=== PATIENT | female | born 1960 | race Hispanic/Latino ===

== ENCOUNTER 2021-09-09 15:28 | Inpatient (IN) | payer OTHER ==
[~2021-09-09] VITALS: Ht 162.6 cm; Wt 80.4 kg
[2021-09-09 16:14] LABS: EOSINOPHILS # (AUTO) 0.1 (0.0-0.4); EOSINOPHILS % 3.5 % (0.0-6.0); HEMOGLOBIN 11.3 g/dL (12.0-16.0); LYMPHOCYTES # (AUTO) 0.5 (1.0-3.2); LYMPHOCYTES % 27.1 % (18.0-39.1); MEAN CORPUSCULAR HEMOGLOBIN 31.7 pg (28-32); MEAN CORPUSCULAR HGB CONC 32.3 g/dL (31-35); MONOCYTES # (AUTO) 0.2 (0.2-0.8); MONOCYTES % 9.5 % (4.4-11.3); NEUTROPHILS # (AUTO) 1.2 (2.1-6.9); NEUTROPHILS % 59.4 % (38.7-80.0); RED BLOOD COUNT 3.57 x10e6/uL (3.6-5.1); RED CELL DISTRIBUTION WIDTH 15.8 % (11.7-14.4)
[2021-09-09 16:15] LABS: PLATELET COUNT 39 x10e3/uL (140-360)
[2021-09-09 16:26] LABS: INR 1.35; PROTHROMBIN TIME 17.6 seconds (11.9-14.5)
[2021-09-09 16:28] LABS: PARTIAL THROMBOPLASTIN TIME 33.7 seconds (23.8-35.5)
[2021-09-09 16:34] LABS: ALBUMIN 2.9 g/dL (3.5-5.0); ALBUMIN/GLOBULIN RATIO 0.7 (0.8-2.0); ANION GAP 12.3 mmol/L (8-16); CALCIUM 8.6 mg/dL (8.4-10.2); CREATININE, SERUM 0.68 mg/dL (0.57-1.11); POTASSIUM 4.3 mmol/L (3.5-5.1)
[2021-09-09 16:38] LABS: CLARITY,URINE CLEAR (CLEAR); COLOR,URINE YELLOW (YELLOW); KETONES,URINE NEGATIVE (NEGATIVE); LEUKOCYTE ESTERASE ,URINE NEGATIVE (NEGATIVE); NITRITE,URINE NEGATIVE (NEGATIVE); PROTEIN,URINE DIPSTICK NEGATIVE (NEGATIVE); URINE UROBILINOGEN 0.2 mg/dL (0.2 - 1)
[2021-09-09 16:47] LABS: BACTERIA,URINE MODERATE /HPF; EPITHELIAL CELLS,URINE MODERATE /LPF; RBC,URINE 0-5 /HPF (0-5)
[2021-09-09] MEDS: METHYLPREDNISOLONE SOD SUCC 125 MG/2ML VIAL IV SCH ×3 (17:08→21:45)
[2021-09-09] MEDS: Pantoprazole IV 40 MG in SODIUM CHLORIDE 0.9% 50ML 50 ML IV SCH ×3 (17:09→21:45)
[2021-09-09 20:00] VITALS: BP 115/54
[2021-09-09] MEDS ORDERED: DIPHENHYDRAMINE HCL INJ 50 MG/ML VIAL IV ONE ×2 (21:00→21:45)
[2021-09-09] MEDS ORDERED: SODIUM CHLORIDE 0.9% 100 ML ONE (21:50)
[2021-09-09] MEDS ORDERED: IOPAMIDOL 370 MG/ML 200 ML INFUS..BTL INJ ONE (21:51)
[2021-09-10] VITALS (7 sets, daily range): BP systolic 99–108; BP diastolic 59–71
[2021-09-10] MEDS: METHYLPREDNISOLONE SOD SUCC 125 MG/2ML VIAL IV SCH ×5 (02:45→22:54)
[2021-09-10] MEDS: Pantoprazole IV 40 MG in SODIUM CHLORIDE 0.9% 50ML 50 ML IV SCH ×5 (02:45→22:54)
[2021-09-10] MEDS ORDERED: SODIUM CHLORIDE 0.9% 50ML 50 ML ONE (05:07)
[2021-09-10] MEDS ORDERED: GLIPIZIDE5 MG PO (11:59)
[2021-09-10] MEDS ORDERED: FUROSEMIDE40 MG PO (11:59)
[2021-09-10] MEDS ORDERED: ALDACTONE100 MG PO (11:59)
[2021-09-10] MEDS ORDERED: LEVOTHYROXINE50 MCG PO (11:59)
[2021-09-10] MEDS ORDERED: FERROUS SULFAT325 MG PO (11:59)
[2021-09-10] MEDS ORDERED: METFORMIN HCL500 MG PO (11:59)
[2021-09-10] MEDS ORDERED: VITAMIN B-121000 MCG PO (11:59)
[2021-09-10] MEDS ORDERED: HYDROCORTISON28.4 G2 TOP (11:59)
[2021-09-10] MEDS ORDERED: LACTULOSE20 GM/30 M PO (11:59)
[2021-09-10] MEDS ORDERED: TRAMADOL HCL100 M2 PO (12:01)
[2021-09-10] MEDS ORDERED: DEXTROSE 50% SYRINGE 50 ML IV PRN (13:30)
[2021-09-10] MEDS ORDERED: TRAMADOL HCL 50 MG TAB PO PRN (16:00)
[2021-09-10] MEDS: INSULIN LISPRO 100 UNIT/1 ML 3ML VIAL SQ SCH ×2 (16:44→20:38)
[2021-09-10] MEDS: ACETAMINOPHEN 325 MG TAB PO PRN (23:17)
[2021-09-10] MEDS ORDERED: CEFTRIAXONE 1 GM in SODIUM CHLORIDE 0.9% 50ML 50 ML IV STA (23:20)
[2021-09-10] MEDS ORDERED: PHYTONADIONE 10 MG/ML AMP IV ONE (23:30)
[2021-09-10] MEDS ORDERED: PHYTONADIONE 10MG/ML 20 MG in SODIUM CHLORIDE 0.9% 50ML 50 ML IV ONE (23:45)
[2021-09-10] MEDS ORDERED: BISACODYL 5 MG TAB EC PO ONE (23:45)
[2021-09-11] VITALS (7 sets, daily range): BP systolic 105–120; BP diastolic 65–79
[2021-09-11] MEDS ORDERED: SODIUM CHLORIDE 0.9% 250ML 250 ML ONE (00:03)
[2021-09-11] MEDS ORDERED: BISACODYL 5 MG TAB EC PO ONE ×2 (00:15→04:00)
[2021-09-11] MEDS ORDERED: ONDANSETRON HCL INJ 2MG/ML 2ML 2 MG/ML VIAL IV PRN (03:30)
[2021-09-11] MEDS ORDERED: Morphine 4mg Syringe 4 MG/ML INJ IV ONE (04:00)
[2021-09-11] MEDS ORDERED: CITRATE OF MAGNESIA 300ML BOTTLE PO ONE ×3 (05:00→12:15)
[2021-09-11 05:09] LABS: HEMATOCRIT 32.3 % (34.2-44.1); HEMOGLOBIN 10.4 g/dL (12.0-16.0); LYMPHOCYTES # (AUTO) 0.2 (1.0-3.2); LYMPHOCYTES % 6.4 % (18.0-39.1); MEAN CORPUSCULAR HGB CONC 32.2 g/dL (31-35); MEAN CORPUSCULAR VOLUME 96.4 fL (81-99); MONOCYTES # (AUTO) 0.1 (0.2-0.8); NEUTROPHILS # (AUTO) 3.3 (2.1-6.9); NEUTROPHILS % 91.3 % (38.7-80.0); RED BLOOD COUNT 3.35 x10e6/uL (3.6-5.1); RED CELL DISTRIBUTION WIDTH 15.2 % (11.7-14.4)
[2021-09-11 05:18] LABS: INR 1.55; PROTHROMBIN TIME 19.9 seconds (11.9-14.5)
[2021-09-11 05:24] LABS: ALBUMIN 2.6 g/dL (3.5-5.0); ALBUMIN/GLOBULIN RATIO 0.7 (0.8-2.0); CREATININE, SERUM 0.7 mg/dL (0.57-1.11)
[2021-09-11 05:45] LABS: PLATELET COUNT 30 x10e3/uL (140-360)
[2021-09-11 06:18] LABS: FERRITIN 22.91 ng/mL (4.63-204.00)
[2021-09-11] MEDS: LEVOTHYROXINE SODIUM 50 MCG TAB PO SCH (06:38)
[2021-09-11] MEDS: Pantoprazole IV 40 MG in SODIUM CHLORIDE 0.9% 50ML 50 ML IV SCH ×4 (06:38→18:45)
[2021-09-11] MEDS: INSULIN LISPRO 100 UNIT/1 ML 3ML VIAL SQ SCH ×4 (07:30→21:00)
[2021-09-11] MEDS: CYANOCOBALAMIN 1,000 MCG TAB PO SCH (08:45)
[2021-09-11] MEDS ORDERED: FERROUS SULFATE 325 MG TAB PO SCH (09:00)
[2021-09-11] MEDS: CEFTRIAXONE 1 GM in SODIUM CHLORIDE 0.9% 50ML 50 ML IV SCH (09:00)
[2021-09-11] MEDS ORDERED: SODIUM CHLORIDE 0.9% 250ML 500 ML ONE (09:19)
[2021-09-11] MEDS ORDERED: IRON SUCROSE 100 MG in SODIUM CHLORIDE 0.9% 100 ML 100 ML IV SCH (10:00)
[2021-09-11] MEDS ORDERED: LACTULOSE SYRUP 20 GM/30 ML UDC PO ONE ×2 (13:30→20:00)
[2021-09-11] MEDS ORDERED: PROMETHAZINE 12.5MG/ NACL 0.9% 12.5 MG/50 ML BAG IV ONE (13:30)
[2021-09-11] MEDS ORDERED: BISACODYL 10 MG SUPP PR ONE (16:30)
[2021-09-11] MEDS: IRON SUCROSE 100 MG in SODIUM CHLORIDE 0.9% 100 ML 100 ML IV SCH (22:31)
[2021-09-12] MEDS: Pantoprazole IV 40 MG in SODIUM CHLORIDE 0.9% 50ML 50 ML IV SCH ×5 (00:09→20:41)
[2021-09-12 00:15] VITALS: BP 106/60
[2021-09-12] MEDS ORDERED: LACTULOSE SYRUP 20 GM/30 ML UDC PO ONE (01:00)
[2021-09-12] MEDS: LEVOTHYROXINE SODIUM 50 MCG TAB PO SCH (05:36)
[2021-09-12 05:42] LABS: HEMATOCRIT 36.8 % (34.2-44.1); HEMOGLOBIN 11.7 g/dL (12.0-16.0); LYMPHOCYTES # (AUTO) 0.3 (1.0-3.2); LYMPHOCYTES % 8.9 % (18.0-39.1); MEAN CORPUSCULAR HEMOGLOBIN 31.5 pg (28-32); MEAN CORPUSCULAR HGB CONC 31.8 g/dL (31-35); MEAN CORPUSCULAR VOLUME 99.2 fL (81-99); MONOCYTES # (AUTO) 0.2 (0.2-0.8); MONOCYTES % 7.1 % (4.4-11.3); NEUTROPHILS # (AUTO) 2.8 (2.1-6.9); NEUTROPHILS % 83.7 % (38.7-80.0); RED BLOOD COUNT 3.71 x10e6/uL (3.6-5.1); RED CELL DISTRIBUTION WIDTH 15.9 % (11.7-14.4)
[2021-09-12 06:07] LABS: ALBUMIN 3.1 g/dL (3.5-5.0); ALBUMIN/GLOBULIN RATIO 0.7 (0.8-2.0); ANION GAP 13.8 mmol/L (8-16); CREATININE, SERUM 1.02 mg/dL (0.57-1.11); POTASSIUM 3.8 mmol/L (3.5-5.1)
[2021-09-12 06:10] LABS: INR 1.35; PROTHROMBIN TIME 17.8 seconds (11.9-14.5)
[2021-09-12 06:13] VITALS: BP 98/62
[2021-09-12 06:22] LABS: PLATELET COUNT 41 x10e3/uL (140-360)
[2021-09-12] MEDS: INSULIN LISPRO 100 UNIT/1 ML 3ML VIAL SQ SCH ×4 (07:30→20:45)
[2021-09-12] MEDS ORDERED: BISACODYL 5 MG TAB EC PO ONE ×2 (07:45→08:15)
[2021-09-12 07:47] VITALS: BP 106/68
[2021-09-12] MEDS ORDERED: SODIUM CHLORIDE 0.9% 250ML 500 ML ONE (08:05)
[2021-09-12] MEDS ORDERED: CYANOCOBALAMIN INJ 1,000 MCG/ML VIAL IM SCH (09:00)
[2021-09-12] MEDS: CYANOCOBALAMIN 1,000 MCG TAB PO SCH (09:00)
[2021-09-12] MEDS ORDERED: IRON SUCROSE 100 MG in SODIUM CHLORIDE 0.9% 100 ML 100 ML IV SCH (09:00)
[2021-09-12] MEDS: CEFTRIAXONE 1 GM in SODIUM CHLORIDE 0.9% 50ML 50 ML IV SCH (10:00)
[2021-09-12 11:41] VITALS: BP 105/73
[2021-09-12] MEDS ORDERED: FENTANYL CITRATE/PF 100MCG/2 ML INJ ONE (15:08)
[2021-09-12] MEDS ORDERED: HYOSCYAMINE SULFATE 0.5 MG/ML INJ ONE (15:44)
[2021-09-12] MEDS ORDERED: GLUCAGON FOR INJ 1 MG VIAL ONE (15:44)
[2021-09-12] MEDS ORDERED: LIDOCAINE HCL 2% LOCAL INJ 5 ML SDV VIAL INJ ONE (15:44)
[2021-09-12] MEDS ORDERED: PROPOFOL IV EMULSION 10 MG/ML 20 ML VIAL ONE (15:44)
[2021-09-12 15:54] VITALS: BP 114/64
[2021-09-12] MEDS ORDERED: PROPRANOLOL HCL 10 MG TAB PO SCH (17:30)
[2021-09-12 20:00] VITALS: BP 106/57
[2021-09-12] MEDS: IRON SUCROSE 100 MG in SODIUM CHLORIDE 0.9% 100 ML 100 ML IV SCH (20:00)
[2021-09-12] MEDS: HYDROCODONE/APAP 5MG-325MG TAB PO PRN (22:13)
[2021-09-12] MEDS ORDERED: SODIUM CHLORIDE 0.9% 50ML 50 ML ONE (22:20)
[2021-09-13] VITALS (7 sets, daily range): BP systolic 92–108; BP diastolic 46–59
[2021-09-13] MEDS: Pantoprazole IV 40 MG in SODIUM CHLORIDE 0.9% 50ML 50 ML IV SCH ×5 (00:49→20:04)
[2021-09-13] MEDS: HYDROCODONE/APAP 5MG-325MG TAB PO PRN ×2 (05:20→20:05)
[2021-09-13] MEDS: LEVOTHYROXINE SODIUM 50 MCG TAB PO SCH (05:20)
[2021-09-13 05:36] LABS: EOSINOPHILS % 1.8 % (0.0-6.0); HEMOGLOBIN 9.8 g/dL (12.0-16.0); LYMPHOCYTES # (AUTO) 0.2 (1.0-3.2); LYMPHOCYTES % 13.9 % (18.0-39.1); MEAN CORPUSCULAR HEMOGLOBIN 31.6 pg (28-32); MEAN CORPUSCULAR HGB CONC 32.7 g/dL (31-35); MEAN CORPUSCULAR VOLUME 96.8 fL (81-99); MONOCYTES # (AUTO) 0.2 (0.2-0.8); MONOCYTES % 12.1 % (4.4-11.3); NEUTROPHILS # (AUTO) 1.2 (2.1-6.9); NEUTROPHILS % 71.6 % (38.7-80.0); RED CELL DISTRIBUTION WIDTH 15.5 % (11.7-14.4)
[2021-09-13 05:54] LABS: PLATELET COUNT 33 x10e3/uL (140-360)
[2021-09-13] MEDS: PROPRANOLOL HCL 10 MG TAB PO SCH (06:00)
[2021-09-13 06:08] LABS: ALBUMIN 2.6 g/dL (3.5-5.0); ALBUMIN/GLOBULIN RATIO 0.7 (0.8-2.0); ANION GAP 15.7 mmol/L (8-16); CALCIUM 7.7 mg/dL (8.4-10.2); CREATININE, SERUM 0.72 mg/dL (0.57-1.11); MAGNESIUM 1.9 MG/DL (1.3-2.1); POTASSIUM 3.7 mmol/L (3.5-5.1)
[2021-09-13] MEDS: INSULIN LISPRO 100 UNIT/1 ML 3ML VIAL SQ SCH ×4 (07:30→20:53)
[2021-09-13] MEDS: CYANOCOBALAMIN 1,000 MCG TAB PO SCH (09:00)
[2021-09-13] MEDS: LACTULOSE SYRUP 20 GM/30 ML UDC PO SCH ×2 (09:00→20:04)
[2021-09-13] MEDS ORDERED: LACTULOSE SYRUP 20 GM/30 ML UDC PO SCH (09:00)
[2021-09-13] MEDS: CEFTRIAXONE 1 GM in SODIUM CHLORIDE 0.9% 50ML 50 ML IV SCH (09:00)
[2021-09-13] MEDS: IRON SUCROSE 100 MG in SODIUM CHLORIDE 0.9% 100 ML 100 ML IV SCH (20:04)
[2021-09-14] VITALS (7 sets, daily range): BP systolic 96–109; BP diastolic 52–62
[2021-09-14] MEDS: Pantoprazole IV 40 MG in SODIUM CHLORIDE 0.9% 50ML 50 ML IV SCH ×4 (02:55→16:30)
[2021-09-14 05:09] LABS: BASOPHILS % 0.6 % (0.0-1.0); EOSINOPHILS # (AUTO) 0.1 (0.0-0.4); EOSINOPHILS % 3.3 % (0.0-6.0); HEMATOCRIT 31.1 % (34.2-44.1); HEMOGLOBIN 10.5 g/dL (12.0-16.0); LYMPHOCYTES # (AUTO) 0.4 (1.0-3.2); LYMPHOCYTES % 19.9 % (18.0-39.1); MEAN CORPUSCULAR HEMOGLOBIN 31.6 pg (28-32); MEAN CORPUSCULAR HGB CONC 33.8 g/dL (31-35); MEAN CORPUSCULAR VOLUME 93.7 fL (81-99); MONOCYTES # (AUTO) 0.2 (0.2-0.8); NEUTROPHILS # (AUTO) 1.2 (2.1-6.9); NEUTROPHILS % 64.6 % (38.7-80.0); RED BLOOD COUNT 3.32 x10e6/uL (3.6-5.1); RED CELL DISTRIBUTION WIDTH 14.9 % (11.7-14.4)
[2021-09-14 05:24] LABS: ALBUMIN 2.6 g/dL (3.5-5.0); ALBUMIN/GLOBULIN RATIO 0.7 (0.8-2.0); ANION GAP 10.9 mmol/L (8-16); CREATININE, SERUM 0.71 mg/dL (0.57-1.11); MAGNESIUM 1.9 MG/DL (1.3-2.1); PHOSPHORUS 2.6 MG/DL (2.3-4.7); POTASSIUM 3.9 mmol/L (3.5-5.1)
[2021-09-14] MEDS: PROPRANOLOL HCL 10 MG TAB PO SCH (05:31)
[2021-09-14] MEDS: LEVOTHYROXINE SODIUM 50 MCG TAB PO SCH (05:31)
[2021-09-14 06:25] LABS: PLATELET COUNT 36 x10e3/uL (140-360)
[2021-09-14] MEDS: INSULIN LISPRO 100 UNIT/1 ML 3ML VIAL SQ SCH ×4 (07:30→21:20)
[2021-09-14 08:02] LABS: EOSINOPHILS % (MANUAL) 5 % (0-7); HYPOCHROMASIA MARKED; LYMPHOCYTES % (MANUAL) 5 % (19-48); MONOCYTES % (MANUAL) 10 % (3.4-9.0); NEUTROPHILS % (MANUAL) 80 % (40-74); PLATELET ESTIMATE MARKEDLY DECREASED; PLATELET MORPHOLOGY COMMENT NORMAL; RBC MORPHOLOGY COMMENT NORMAL
[2021-09-14] MEDS: CEFTRIAXONE 1 GM in SODIUM CHLORIDE 0.9% 50ML 50 ML IV SCH (08:47)
[2021-09-14] MEDS: CYANOCOBALAMIN 1,000 MCG TAB PO SCH (08:47)
[2021-09-14] MEDS: LACTULOSE SYRUP 20 GM/30 ML UDC PO SCH ×2 (08:47→20:51)
[2021-09-14] MEDS: IRON SUCROSE 100 MG in SODIUM CHLORIDE 0.9% 100 ML 100 ML IV SCH (20:20)
[2021-09-14] MEDS: GUAIFENESIN/CODEINE 5 ML LIQD PO PRN (20:52)
[2021-09-15] VITALS (7 sets, daily range): BP systolic 91–109; BP diastolic 49–58
[2021-09-15] MEDS: Pantoprazole IV 40 MG in SODIUM CHLORIDE 0.9% 50ML 50 ML IV SCH ×5 (00:40→23:59)
[2021-09-15 05:53] LABS: BASOPHILS % 0.5 % (0.0-1.0); EOSINOPHILS # (AUTO) 0.1 (0.0-0.4); EOSINOPHILS % 3.8 % (0.0-6.0); HEMATOCRIT 32.4 % (34.2-44.1); HEMOGLOBIN 10.8 g/dL (12.0-16.0); LYMPHOCYTES # (AUTO) 0.4 (1.0-3.2); LYMPHOCYTES % 19.3 % (18.0-39.1); MEAN CORPUSCULAR HEMOGLOBIN 31.5 pg (28-32); MEAN CORPUSCULAR HGB CONC 33.3 g/dL (31-35); MEAN CORPUSCULAR VOLUME 94.5 fL (81-99); MONOCYTES # (AUTO) 0.2 (0.2-0.8); MONOCYTES % 9.4 % (4.4-11.3); NEUTROPHILS # (AUTO) 1.4 (2.1-6.9); NEUTROPHILS % 66.1 % (38.7-80.0); RED BLOOD COUNT 3.43 x10e6/uL (3.6-5.1); RED CELL DISTRIBUTION WIDTH 14.9 % (11.7-14.4)
[2021-09-15] MEDS: PROPRANOLOL HCL 10 MG TAB PO SCH (05:55)
[2021-09-15] MEDS: LEVOTHYROXINE SODIUM 50 MCG TAB PO SCH (05:55)
[2021-09-15 06:09] LABS: PLATELET COUNT 35 x10e3/uL (140-360)
[2021-09-15 06:22] LABS: ALBUMIN 2.6 g/dL (3.5-5.0); ALBUMIN/GLOBULIN RATIO 0.7 (0.8-2.0); ANION GAP 9.8 mmol/L (8-16); CREATININE, SERUM 0.7 mg/dL (0.57-1.11); MAGNESIUM 1.8 MG/DL (1.3-2.1); PHOSPHORUS 2.9 MG/DL (2.3-4.7); POTASSIUM 3.8 mmol/L (3.5-5.1)
[2021-09-15] MEDS: INSULIN LISPRO 100 UNIT/1 ML 3ML VIAL SQ SCH ×4 (07:30→22:30)
[2021-09-15 08:34] LABS: PLATELET ESTIMATE MARKEDLY DECREASED; PLATELET MORPHOLOGY COMMENT NORMAL; RBC MORPHOLOGY COMMENT NORMAL
[2021-09-15] MEDS: LACTULOSE SYRUP 20 GM/30 ML UDC PO SCH ×2 (09:59→22:30)
[2021-09-15] MEDS: CYANOCOBALAMIN 1,000 MCG TAB PO SCH (09:59)
[2021-09-15] MEDS: CEFTRIAXONE 1 GM in SODIUM CHLORIDE 0.9% 50ML 50 ML IV SCH (09:59)
[2021-09-15] MEDS: ACETAMINOPHEN 325 MG TAB PO PRN (10:01)
[2021-09-15] MEDS: GUAIFENESIN/CODEINE 5 ML LIQD PO PRN (13:14)
[2021-09-15] MEDS: IRON SUCROSE 100 MG in SODIUM CHLORIDE 0.9% 100 ML 100 ML IV SCH (22:30)
[2021-09-15] MEDS: IRON-VITAMIN-MINERAL CAPSULE PO SCH (23:59)
[2021-09-16] VITALS (9 sets, daily range): BP systolic 97–111; BP diastolic 51–71
[2021-09-16] MEDS: Pantoprazole IV 40 MG in SODIUM CHLORIDE 0.9% 50ML 50 ML IV SCH ×5 (04:34→23:43)
[2021-09-16] MEDS: PROPRANOLOL HCL 10 MG TAB PO SCH (06:00)
[2021-09-16] MEDS: LEVOTHYROXINE SODIUM 50 MCG TAB PO SCH (06:22)
[2021-09-16] MEDS: HYDROCODONE/APAP 5MG-325MG TAB PO PRN (06:23)
[2021-09-16] MEDS: INSULIN LISPRO 100 UNIT/1 ML 3ML VIAL SQ SCH ×4 (07:30→21:12)
[2021-09-16] MEDS: LACTULOSE SYRUP 20 GM/30 ML UDC PO SCH ×2 (09:00→21:00)
[2021-09-16] MEDS: IRON-VITAMIN-MINERAL CAPSULE PO SCH ×2 (09:00→17:13)
[2021-09-16] MEDS: CYANOCOBALAMIN 1,000 MCG TAB PO SCH (09:00)
[2021-09-16] MEDS: CEFTRIAXONE 1 GM in SODIUM CHLORIDE 0.9% 50ML 50 ML IV SCH (09:00)
[2021-09-17 04:00] VITALS: BP 94/56
[2021-09-17 04:48] LABS: BASOPHILS % 0.4 % (0.0-1.0); EOSINOPHILS # (AUTO) 0.1 (0.0-0.4); EOSINOPHILS % 4.3 % (0.0-6.0); HEMATOCRIT 34.2 % (34.2-44.1); HEMOGLOBIN 11.4 g/dL (12.0-16.0); LYMPHOCYTES # (AUTO) 0.5 (1.0-3.2); LYMPHOCYTES % 18.5 % (18.0-39.1); MEAN CORPUSCULAR HEMOGLOBIN 32.1 pg (28-32); MEAN CORPUSCULAR HGB CONC 33.3 g/dL (31-35); MEAN CORPUSCULAR VOLUME 96.3 fL (81-99); MONOCYTES # (AUTO) 0.3 (0.2-0.8); MONOCYTES % 10.3 % (4.4-11.3); NEUTROPHILS # (AUTO) 1.9 (2.1-6.9); NEUTROPHILS % 66.1 % (38.7-80.0); RED BLOOD COUNT 3.55 x10e6/uL (3.6-5.1); RED CELL DISTRIBUTION WIDTH 16.1 % (11.7-14.4)
[2021-09-17 04:57] LABS: PLATELET COUNT 40 x10e3/uL (140-360)
[2021-09-17] MEDS: Pantoprazole IV 40 MG in SODIUM CHLORIDE 0.9% 50ML 50 ML IV SCH ×3 (05:07→14:45)
[2021-09-17 05:09] LABS: ALANINE AMINOTRANSFERASE 27 IU/L (0-55); ALBUMIN 2.6 g/dL (3.5-5.0); ALBUMIN/GLOBULIN RATIO 0.7 (0.8-2.0); ALKALINE PHOSPHATASE 141 IU/L (40-150); ANION GAP 10.1 mmol/L (8-16); CALCIUM 8.1 mg/dL (8.4-10.2); CARBON DIOXIDE 27 mmol/L (22-29); CHLORIDE 104 mmol/L (98-107); CREATININE, SERUM 0.69 mg/dL (0.57-1.11); EST GLOMERULAR FILTRATION RATE 86 ML/MIN (60-); GLUCOSE 141 mg/dL (74-118); POTASSIUM 4.1 mmol/L (3.5-5.1); SODIUM 137 mmol/L (136-145)
[2021-09-17] MEDS: PROPRANOLOL HCL 10 MG TAB PO SCH (05:18)
[2021-09-17] MEDS: LEVOTHYROXINE SODIUM 50 MCG TAB PO SCH (05:18)
[2021-09-17 05:23] LABS: BUN/CREATININE RATIO 7 (6-25)
[2021-09-17 05:34] LABS: BLOOD UREA NITROGEN < 5 mg/dL (7-26)
[2021-09-17 07:51] VITALS: BP 106/59
[2021-09-17 07:52] VITALS: BP 106/59
[2021-09-17] MEDS: INSULIN LISPRO 100 UNIT/1 ML 3ML VIAL SQ SCH ×3 (08:30→16:30)
[2021-09-17] MEDS: CEFTRIAXONE 1 GM in SODIUM CHLORIDE 0.9% 50ML 50 ML IV SCH (09:00)
[2021-09-17] MEDS: IRON-VITAMIN-MINERAL CAPSULE PO SCH ×2 (09:36→16:53)
[2021-09-17] MEDS: LACTULOSE SYRUP 20 GM/30 ML UDC PO SCH (09:37)
[2021-09-17] MEDS: CYANOCOBALAMIN 1,000 MCG TAB PO SCH (09:37)
[2021-09-17 12:00] VITALS: BP 93/50
[2021-09-17] MEDS: GUAIFENESIN/CODEINE 5 ML LIQD PO PRN (12:17)
[2021-09-17] MEDS ORDERED: PANTOPRAZOLE SO40 MG PO (15:47)
[2021-09-17 16:00] VITALS: BP 106/56
== END 2021-09-17 18:15 | disposition home or self-care (01) | DRG 433 ==
LOC: ER 15:48 → ERHOLD 19:23 → MED/SURG 19:31 → OBSVTOIN 09-10 10:03
PROVIDERS: ADMIT Internal Medicine; ATTEND Internal Medicine
PROC: 30233R1 Transfusion of Nonautologous Platelets into Peripheral Vein, Percutaneous Approach (ICD-10-PCS; 2021-09-10)
PROC: 30233L1 Transfusion of Nonautologous Fresh Plasma into Peripheral Vein, Percutaneous Approach (ICD-10-PCS; 2021-09-10)
PROC: 30233K1 Transfusion of Nonautologous Frozen Plasma into Peripheral Vein, Percutaneous Approach (ICD-10-PCS; 2021-09-10)
PROC: 0DB78ZX Excision of Stomach, Pylorus, Via Natural or Artificial Opening Endoscopic, Diagnostic (ICD-10-PCS; principal; 2021-09-12 16:22)
PROC: 0DJD8ZZ Inspection of Lower Intestinal Tract, Via Natural or Artificial Opening Endoscopic (ICD-10-PCS; 2021-09-12 16:22)
DX: K74.69 Other cirrhosis of liver (principal); C22.8 Malignant neoplasm of liver, primary, unspecified as to type; D61.818 Other pancytopenia; I50.32 Chronic diastolic (congestive) heart failure; K76.6 Portal hypertension; I85.10 Secondary esophageal varices without bleeding; M96.843 Postprocedural seroma of a musculoskeletal structure following other procedure; K64.8 Other hemorrhoids; E11.65 Type 2 diabetes mellitus with hyperglycemia; E03.9 Hypothyroidism, unspecified; D69.6 Thrombocytopenia, unspecified; D72.819 Decreased white blood cell count, unspecified; D64.9 Anemia, unspecified; D13.1 Benign neoplasm of stomach; K31.89 Other diseases of stomach and duodenum; K72.90 Hepatic failure, unspecified without coma; Z88.8 Allergy status to other drugs, medicaments and biological substances; Z91.041 Radiographic dye allergy status; Z90.49 Acquired absence of other specified parts of digestive tract; Z20.822 Contact with and (suspected) exposure to COVID-19
CPT/HCPCS: 36415; 43239; 45378; 74018; 74019; 74174; 80053; 81001; 82105; 82140; 82378; 82607; 82728; 82746; 82948; 83540; 83690; 83735; 84100; 84466; 85025; 85610; 85730; 86039; 86255; 86850; 86900; 88305; 88312; 88342; 96360; 99284; G0378; J0696; J1200; J1610; J1756; J1980; J2001; J2270; J2405; J2550; J2930; J3010; J3430; J7050; P9017; P9034; Q9967; U0002